=== PATIENT | male | born 1970 | race Caucasian/White ===

== ENCOUNTER → 2016-06-07 | Outpatient (CLI) | payer BC ==
[~2016-06-07] MED LIST: FLUCONAZOLE PO; OXYC-57 PO
== END | disposition home or self-care (01) ==
LOC: C.RDSM 09:00
PROVIDERS: ATTEND Physical Medicine & Rehabilitation Sports Medicine
DX: S46.012D Strain of muscle(s) and tendon(s) of the rotator cuff of left shoulder, subsequent encounter (principal); X58.XXXD Exposure to other specified factors, subsequent encounter

== ENCOUNTER → 2017-05-20 | Day surgery (SDC) | payer BC ==
[2017-05-08 08:07] VITALS: Ht 170.2 cm; Wt 81.8 kg
[~2017-05-20] VITALS: Ht 170.2 cm; Wt 81.8 kg
[~2017-05-20] MED LIST changes: +ATROPINE SULFATE 0.1 MG/ML 5ML SYR IV PRN; +BUPIVACAINE/EPINEPHRINE 0.5% MPF 1:200,000 30 ML VIAL ONE; +CEFAZOLIN 2000MG IV PUSH 10 ML IV SCH; +EpHEDrine SULFATE INJ 50 MG/ML AMP IV PRN; +EpHEDrine SULFATE INJ 50 MG/ML AMP ONE; +FENTANYL CITRATE INJ 50 MCG/1 ML 2 ML VIAL IV PRN; +FENTANYL CITRATE INJ 50 MCG/1 ML 2 ML VIAL ONE; +FLUC150T PO; -FLUCONAZOLE PO; +HYDR-5688 PO; +HYDROCODONE/ACETAMOPHEN 5/325MG TAB PO PRN; +LACTATED RINGER'S 1000ML 1,000 ML IV SCH; +LIDOCAINE HCL 2% 2 ML VIAL (20MG/ML) ONE; +MIDAZOLAM HCL 1 MG/ML 2ML VIAL ONE; +ONDANSETRON INJ 2 MG/ML 2 ML VIAL IV PRN; +ONDANSETRON INJ 2 MG/ML 2 ML VIAL ONE; -OXYC-57 PO; +PHENYLEPHRINE HCL INJ 10 MG/ML VIAL ONE; +PROPOFOL IV EMULSION 10 MG/ML 20 ML VIAL IV ONE; +SODIUM CHLORIDE 0.9% 1000ML 1,000 ML IV SCH
--- NOTE | 2017-05-20 08:14 | History & Physical Bridge Note ---
H&P Re-Evaluation Bridge Note: I have examined the patient, reviewed the History & Physical and in the interval since the performance of the History & Physical I have noted the following changes of clinical significance: No changes noted
--- NOTE | 2017-05-20 09:24 | [facility] Post Operative Brief Note ---
Immediate Operative Summary Operative Date May 20, 2017. Pre-Operative Diagnosis Left Inguinal hernia Post-Operative Diagnosis Same as pre-op; direct/recurrent Procedure(s) Performed Left Inguinal Hernia Open Repair With Mesh (plug/patch) Surgeon Deputy Attorney General Surgeon(s) Millie CARRANZA Estimated Blood Loss 5 cc Findings large /recurrent LIH. direct. Specimens none Anesthesia LMA Complication(s) None Disposition Recovery Room / PACU
--- NOTE | 2017-05-20 09:32 | [facility] Operative Report ---
Operative Report Operative Date May 20, 2017. Pre-Operative Diagnosis Left Inguinal hernia Post-Operative Diagnosis Same as pre-op; direct/recurrent Procedure(s) Performed Left Inguinal Hernia Open Repair With Mesh (plug/patch) Surgeon Fuel Efficient Aircraft Designer Surgeon(s) Millie CARRANZA Estimated Blood Loss 5 cc Findings large recurrent LIH Specimens none Anesthesia LMA Disposition Recovery Room / PACU Description of Procedure After informed consent was obtained the patient was taken to the operating room and placed in supine position. After successful placement of the laryngeal mask airway the left groin was shaved and sterilely prepped and draped in usual fashion. I made an incision through his old scar line with a 15 blade scalpel and carried this down through the soft tissue using electrocautery. The external oblique aponeurosis was skeletonized and opened with a fresh scalpel. Was extended distally through the external ring using Metzenbaum scissors as well as for several centimeters proximally. We then dissected free the cord and cord structures. I was able to use a Mendon lamp and gentle finger dissection to gently lift the cord structures off the pubic bone in place a Hammon drain around them. This exposed a large direct hernia. I did examine the cord and cord structures and there was no evidence of an indirect hernia. The direct hernia was reducible however it did not want to stay reduced therefore I opted to use a plug and patch technique. A piece of polypropylene plug mesh was inserted into the defect and secured to surrounding musculature using 0 Ethibond. I secured it to the shelving portion of Poupart's ligament laterally and the midline musculature medially to Marko's ligament distally. Once the plug was in place I then placed a mesh polypropylene onlay also. It was also secured distally to Marko's laterally along the shelving portion of Poupart's ligament and medially along the midline musculature. The "arms" of the mesh were wrapped around behind the cord and cord structures. All this was secured with interrupted 0 nylon sutures. The mesh did not impinge on the cord structures and laid tension free. There was adequate hemostasis. Marcaine was injected around the mesh for postoperative analgesia. Thorough irrigation was performed. We then closed the external oblique aponeurosis with 2-0 Vicryl in a running fashion. Soft tissue was irrigated and closed using 3-0 Vicryl and 4- 0 Monocryl for the skin. Additional Marcaine was injected around the skin and Dermabond glue used as a dressing. The patient was awakened extubated and transferred recovery in stable condition My physician's magistrate assistant was present throughout the entire case. She helped prepped the patient as well as helped with retraction throughout my entire dissection. She also helped with wound closure and dressing placement at the end of the case I attest to the content of the Intraoperative Record and any orders documented therein. Any exceptions are noted below.
--- NOTE | 2017-05-20 09:45 | Discharge Instructions-SurgCtr ---
Discharge Instructions Date of Service May 20, 2017. Visit Reason for Visit: Recurrent Left Inguinal Hernia Discharge Discharge Diagnosis / Problem: Recurrent Left Inguinal Hernia Discharge Goals Goal(s): Decrease discomfort, Improve function Activity Recommendations Activity Limitations: as noted below Lifting Limitations: no more than 10 pounds Exercise/Sports Limitations: until after follow-up appointment May Resume Sexual Activity: after follow-up appointment Shower/Bathe: tomorrow Driving or Machine Use: resume 3 days after discharge Anesthesia . Post Anesthesia Instructions: If you have had General Anesthesia or IV Sedation: * Do not drive today. * Resume driving when surgeon permits. * Do not make important decisions or sign legal documents today. * Call surgeon for: 1. Temperature elevations greater than 101 degrees F. 2. Uncontrollable pain. 3. Excessive bleeding. 4. Persistent nausea and vomiting. 5. Medication intolerance (nausea, vomiting or rash). * For nausea and vomiting use only clear liquids such as: tea, soda, bouillon until nausea subsides, then gradually increase diet as tolerated. * If you have any concerns or questions, call your surgeon's office. If physician is unavailable and it is an emergency, call 911 or go to the nearest emergency room. . Instructions / Follow-Up Instructions / Follow-Up Please follow-up with Dr. Patel in the General Surgery [facility] in 1-2 weeks. Please call the office at [phone] to make an appointment if you do not have one already. Please call the office with any questions or concerns. Diet Recommendations Home Diet: no limitations Procedures Procedures Performed: Left Inguinal Hernia Open Repair With Mesh (plug/patch) Pending Studies Studies pending at discharge: no Medical Emergencies . Who to Call and When: Medical Emergencies: If at any time you feel your situation is an emergency, please call 911 immediately. . Non-Emergent Contact Non-Emergency issues call your: Primary Care Provider, Surgeon Call Non-Emergent contact if: temperature is above 101.5, your pain is not controlled, wound has increased drainage, wound has increased redness . . "Provider Documentation" section prepared by Citlali Rodrigeuz. . [place] Drug Monitoring Program Search Results: patient reviewed within database, no issues identified
--- NOTE | 2017-05-20 10:03 | Anesthesia Progress Nt - [facility] ---
Anesthesia Post Op Note Date & Time May 20, 2017 at 10:03 Vital Signs Pain Intensity: 0 Vital Signs Past 12 Hours Date Time Temp Pulse Resp B/P (MAP) Pulse Ox O2 Delivery O2 Flow Rate FiO2 05/20/17 09:57 68 16 05/20/17 09:57 67 16 99 05/20/17 09:57 67 16 99 05/20/17 09:57 68 16 05/20/17 09:56 118/80 05/20/17 09:54 79 22 99 05/20/17 09:54 77 22 05/20/17 09:53 80 18 05/20/17 09:53 79 18 100 05/20/17 09:52 66 18 99 05/20/17 09:52 66 18 05/20/17 09:51 117/67 05/20/17 09:50 67 20 99 05/20/17 09:50 67 20 05/20/17 09:49 67 15 05/20/17 09:49 66 15 99 05/20/17 09:46 111/64 05/20/17 09:44 66 23 98 05/20/17 09:44 66 23 05/20/17 09:41 98/67 05/20/17 09:40 117/59 05/20/17 09:39 68 22 92 05/20/17 09:39 36.4 61 20 117/56 98 Mask 10 05/20/17 09:39 66 22 05/20/17 07:21 36.7 69 16 117/79 (92) 95 Room Air Notes Mental Status: alert / awake / arousable, participated in evaluation Pt Amnestic to Procedure: Yes Nausea / Vomiting: adequately controlled Pain: adequately controlled Airway Patency, RR, SpO2: stable & adequate BP & HR: stable & adequate Hydration State: stable & adequate Anesthetic Complications: no major complications apparent
[2017-05-20 10:49] VITALS: TEMP 36.6
[2017-05-20] MEDS: HYDROCODONE/ACETAMOPHEN 5/325MG TAB PO PRN ×2 (10:53→11:45)
[2017-05-20 12:03] VITALS: BP 122/80; PULSE 68; O2SAT 97
== END | disposition home or self-care (01) ==
LOC: X.SURG 07:11
PROVIDERS: ATTEND Surgery
DX: K40.91 Unilateral inguinal hernia, without obstruction or gangrene, recurrent (principal); Z98.890 Other specified postprocedural states; Z82.49 Family history of ischemic heart disease and other diseases of the circulatory system; Z83.3 Family history of diabetes mellitus

== ENCOUNTER 2020-08-16 06:53 | Observation (INO) ==
--- NOTE | 2020-07-19 14:13 | PAT Medication Instructions ---
Medication Instructions Date of Service July 19, 2020 Home Medications fluconazole 150 mg PO WK fluticasone propionate [Flonase] 1 spray INTRANASAL HS ibuprofen 800 mg PO Q6H PRN Continue as directed fluconazole 150 mg PO WK (just do not take on day of surgery) ASK your surgeon for instructions ibuprofen 800 mg PO Q6H PRN Take evening before surgery fluticasone propionate [Flonase] 1 spray INTRANASAL HS Other Notes NOTHING TO EAT OR DRINK AFTER MIDNIGHT THE NIGHT BEFORE YOUR SURGERY. If you have any questions please call us at [phone] or [phone] or [phone] or [phone]
--- NOTE | 2020-07-24 11:50 | Anesthesiology Consultation ---
Date of Service July 24, 2020 Assessment & Plan (1) Encounter for pre-operative examination: - COVID screening: Per assessment on 07/24: Travel screen- Lives/works in [place]). Uses PPE. No known COVID-19 positive contacts or current COVID- 19 related symptoms. Surgeon arranging preop COVID testing (scheduled 08/09; [place]). Awaiting results. - S/P Left Laparoscopic Recurrent Inguinal Hernia Repair with Mesh (04/09/18): Grade view 1, MAC #3, ETT 8.0 at [facility] Chart Review Chart Review: Acceptable Risk for Surgery (pending surgeon-ordered PCP clearance) and Patient seen in Pre Admission Testing Teaching & Discussion Pre-Anesthesia Teaching/Discussion Notes: Instructed NPO after midnight before surgery,except medications with 15 cc of water. Medication instructions provided according to the PAT guidelines. History Surgery Operation Date: 08/16/20 09:05 Proposed Procedures p Right Total Hip Arthroplasty with Dual Mobility Cup - Junior Montelongo MD Height/Weight Height: 5 ft 7 in Weight: 85.9 kg Allergies Allergy/AdvReac Type Severity Reaction Status Date / Time No Known Allergies Allergy Verified 07/10/20 10:17 Medications Home Medications Medication Instructions Recorded Confirmed Last Taken fluconazole 150 mg PO WK 02/26/18 07/10/20 04/05/18 08:30 fluticasone propionate [Flonase] 1 spray INTRANASAL HS 07/10/20 07/10/20 Unknown ibuprofen 800 mg PO Q6H PRN 07/10/20 07/10/20 Unknown Past Medical History Medical History Nail fungus Weekly fluconazole (chronic x years/no current issue) Sleep apnea CPAP Exercise / Class Metabolic Activity II 4-5 Yardwork/Stairs/Walk up hill Past Family History Family History Mother Family history of diabetes mellitus Past Surgical History Surgical History History of colonoscopy Hx of hernia repair R/L; Left Laparoscopic Recurrent Inguinal Hernia Repair with Mesh (04/09/18): Grade view 1, MAC #3, ETT 8.0 at [facility] Hx of repair of rotator cuff Right Hx of rotator cuff surgery Left Hx of skin graft Left ear Hx of wisdom tooth extraction Past Anesthesia History No Hx of Anesthesia Complications and No Family Hx of Anesthesia Complications History of PONV No Hx of PONV and No Hx of Motion Sickness Social History Smoking Status: Never smoker Do You Dip or Chew Tobacco: No Hx Alcohol Use: Yes Alcohol type: hard liquor alcohol intake frequency: a few times a week Hx Substance Use: No Review of Systems Patient denies chest pain, shortness of breath, dyspnea on exertion, joint pain, reflux, cough, wheezing, palpitations. Physical Exam Vital Signs VITALS BP 140/96 (had coffee prior to visit, patient states BP closely monitored and typically "very good") P 58 TEMP 98.2 SP02 97%RA RESP 16 PHYSICAL Full neck and c-spine range of motion. Full TMJ range of motion. TMD 3 finger breaths Mallampati Score 2 Dentition: intact Lungs: clear throughout to auscultation Cardiac: regular rate and rhythm, no murmurs noted Spine: normal Carotid arteries: negative bruit Extremities: no edema Testing Laboratory Results 07/24/20 11:18 07/24/20 11:18 PT 11.6 Seconds (9.0-12.0) 07/24/20 11:18 INR 1.2 (0.9-1.1) H 07/24/20 11:18 APTT 29.2 Seconds (21.0-31.0) 07/24/20 11:18 Blood Type O Positive 07/24/20 11:18 Antibody Screen NEGATIVE 07/24/20 11:18 Electrocardiogram Date: 07/24/20 NSR at 60bpm. LAFB. unconfirmed report. Chest X-Ray Date: 07/24/20 FINDINGS: PA and lateral chest radiographs are compared to study dated 04/12/2016. The cardiomediastinal silhouette is unremarkable. The lungs and pleural spaces are clear. There is no pneumothorax. The bony thorax appears intact. IMPRESSION: No active disease in the chest. Stress Test Date: 07/11/20 Type: exercise 16.5 METS. 106% MPHR. Negative ETT for myocardia ischemia based on EKG criteria. No chest pain with exercise. No significant exercise-induced arrhythmias. Well above average exercise capacity.
--- NOTE | 2020-07-24 13:01 | XRay Report ---
TWO VIEW CHEST CLINICAL HISTORY: Preoperative examination. FINDINGS: PA and lateral chest radiographs are compared to study dated 04/12/2016. The cardiomediastin al silhouette is unremarkable. The lungs and pleural spaces are clear. There is no pneumothorax. The bony thorax appears intact. IMPRESSION: No active disease in the chest. ACT 112: Negative or not required by law. Electronically signed by: Stanley Martinez M.D. 07/24/2020 12:59 PM
[2020-07-24 13:32] LABS: Hematocrit (blood only) 41.8 % (42-52); Hemoglobin 14.6 g/dL (14.0-18.0); Mean Corpuscular Volume 88.6 fL (80-100); Red Blood Count 4.72 M/uL (4.7-6.1); White Blood Count 5.37 K/uL (4.8-10.8)
[2020-07-24 13:33] LABS: Basophils # (auto) 0.01 K/uL (0-0.2); Basophils % (auto) 0.2 %; Eosinophils # (auto) 0.08 K/uL (0-0.5); Eosinophils % (auto) 1.5 %; Lymphocytes # (auto) 1.45 K/uL (1.2-3.4); Mean Corpuscular Hemoglobin 30.9 pg (25-34); Mean Corpuscular Hgb Conc 34.9 g/dL (32-36); Mean Platelet Volume 9.9 fL (7.4-10.4); Monocytes # (auto) 0.54 K/uL (0.11-0.59); Monocytes % (auto) 10.1 %; Neutrophils # (auto) 3.29 K/uL (1.4-6.5); Neutrophils % (auto) 61.2 %; Platelet Count 225 K/uL (130-400); RDW Coefficient of Variation 13.3 % (11.5-14.5); RDW Standard Deviation 43.4 fL (36.4-46.3)
[2020-07-24 13:45] LABS: INR 1.2 (0.9-1.1); Partial Thromboplastin Ratio 1.1; Partial Thromboplastin Time 29.2 Seconds (21.0-31.0); Prothrombin Time 11.6 Seconds (9.0-12.0)
[2020-07-24 14:12] LABS: BUN Creatinine Ratio 15.7 (10-20); Calcium 8.8 mg/dl (8.5-10.1); Creatinine Clr Calc Pharmacy 88.8 ml/min; Est GFR (Non-African American) 83.7; Potassium 4.3 mmol/L (3.5-5.1)
[2020-07-24 16:32] LABS: Appearance Urine Clear (Clear); Bilirubin Urine Negative (Negative); Blood Urine Negative (Negative); Color Urine Yellow; Glucose Urine UA Negative (Negative); Ketones Urine Negative (Negative); Leukocyte Esterase Urine Negative (Negative); Nitrite Urine Negative (Negative); Protein Urine Negative (Negative); Specific Gravity Urine 1.012 (1.000-1.030); Urobilinogen Urine Negative (Negative)
--- NOTE | 2020-07-24 21:45 | Electrocardiogram Report ---
Test Reason : Blood Pressure : / mmHG Vent. Rate : 060 BPM Atrial Rate : 060 BPM P-R Int : 152 ms QRS Dur : 110 ms QT Int : 436 ms P-R-T Axes : 058 -57 012 degrees QTc Int : 436 ms Normal sinus rhythm Left anterior fascicular block Abnormal ECG No previous ECGs available Confirmed by Ari Herrera ([id number]) on 07/24/2020 9:44:50 PM Referred By: Junior Montelongo Confirmed By:Ari Herrera
--- NOTE | 2020-07-26 16:27 | History & Physical Report ---
Date of Service July 26, 2020 Assessment & Plan (1) Degenerative joint disease of right hip: Postoperative prescriptions for Percocet and Coumadin will be provided at discharge from the hospital. Anticipate discharge to home with home health services. He has access to a walker already. The patient is currently asymptomatic of any COVID-19 symptoms. He is aware of the COVID-19 risks associated with surgery. He will obtain COVID-19 nasal swab testing prior to surgery. He has an appointment to see Dr. Malagon for medical clearance next week. The patient will see PAT today for preoperative lab work, EKG, and chest x-ray. PDMP was checked and there are no concerning findings. History of Present Illness Chief Complaint: Right hip pain Primary Care Provider: Sheeba Marmolejo MD This 49-year-old male presents today for right hip pain for the last 2 years. He is scheduled to undergo a right total hip arthroplasty using dual mobility cu p on 08/16/2020. It has become worse with time. He has periodic episodes of sharp pain. Worse with activity. He notes some limitation in end range of motion. No numbness or tingling. No specific trauma. Pain is worse with weightbearing and is affecting his ADLs. Preoperative imaging has been obtained. Allergies Allergy/AdvReac Type Severity Reaction Status Date / Time No Known Allergies Allergy Verified 07/10/20 10:17 Home Medications Medication Instructions Recorded Confirmed Type fluconazole 150 mg PO WK 02/26/18 07/10/20 History fluticasone propionate [Flonase] 1 spray INTRANASAL HS 07/10/20 07/10/20 History ibuprofen 800 mg PO Q6H PRN 07/10/20 07/10/20 History Past Med/Surg History Medical History (Updated 07/26/20 @ 16:25 by Asif Marie PA-C) History of diverticulitis Nail fungus Weekly fluconazole (chronic x years/no current issue) Sleep apnea CPAP Surgical History History of colonoscopy Hx of hernia repair R/L; Left Laparoscopic Recurrent Inguinal Hernia Repair with Mesh (04/09/18): Grade view 1, MAC #3, ETT 8.0 at [facility] Hx of repair of rotator cuff Right Hx of rotator cuff surgery Left Hx of skin graft Left ear Hx of wisdom tooth extraction Family History (Updated 07/26/20 @ 16:24 by Asif Marie PA-C) Mother Family history of diabetes mellitus Other Atrial fibrillation Diabetes Heart disease Obesity Prostate cancer Social History (Updated 07/26/20 @ 16:21 by Asif Marie PA-C) Smoking Status: Never smoker Second Hand Exposure: No; Do You Dip or Chew Tobacco: No; Hx Alcohol Use: Yes Alcohol type: hard liquor Hx Substance Use: No Preferred Language: Guamanian Communication Ability: Effective Component Lab Tech Required: No Beliefs That Will Affect Care: None marital status: Current Living Situation: Spouse current occupational status: employed Other Information That Helps Us Care for You: No Feels Safe at Home: Yes Safety Concerns: Feels Safe At This Time Assistive Devices: Contacts and Glasses Assistive Devices Comment: WILL WEAR GLASSES DOS Review of Systems Review of Systems: All systems reviewed & are unremarkable except as noted in HPI & below A total of 10 systems were reviewed. Physical Exam Physical Exam: Vitals: Height 169.4 cm, weight 86 kilograms, BMI 30. Temp 36.7 BP 142/76, Pulse 72 O2 sat 98% on room air. General: Well-developed, well-nourished middle-aged white male in no acute distress. Sitting in a chair. Alert and oriented. Skin: Warm and dry with good turgor. No rashes or lesions. No ecchymosis or erythema. HEENT: Normocephalic, atraumatic. Eyes: PERRLA, EOMI. Nares and oropharynx exams deferred due to COVID precautions. Heart: RRR, no MGR. Lungs: Clear to auscultation bilaterally, no crackles, rhonchi or wheezing, good air movement. Abdomen: Bowel sounds present x4, soft, nontender. No organomegaly. No masses. Musculoskeletal: Right hip evaluation reveals no obvious asymmetry or deformity. He has hip flexion to around 90 degrees before onset of discomfort. Internal rotation is just to neutral. He lacks about 10-15 degrees of external rotation when comparing right to left. Ambulates with a slight limp. No discomfort with palpation over his greater trochanter or IT band. He does have discomfort with palpation over the anterior flexion crease of the groin. Strength is 5/5 for resisted hip flexion, abduction, and adduction. Neurologic: Gross sensation is intact across the lower extremities by soft touch. Peripheral pulses are 2+. Results & Data Results & Data ([facility]) Diagnostic Findings Radiographic imaging previously obtained shows end-stage DJD of the right hip. Periarticular osteophytes and joint space narrowing are present. Large Cam lesions and pincer lesions are also present.
[~2020-08-16 06:53] MED LIST changes: -ATROPINE SULFATE 0.1 MG/ML 5ML SYR IV PRN; +BUPIVACAINE 0.5 % 5 MG/1 ML PF 10ML VIAL ONE; -BUPIVACAINE/EPINEPHRINE 0.5% MPF 1:200,000 30 ML VIAL ONE; -CEFAZOLIN 2000MG IV PUSH 10 ML IV SCH; -EpHEDrine SULFATE INJ 50 MG/ML AMP IV PRN; -EpHEDrine SULFATE INJ 50 MG/ML AMP ONE; -FENTANYL CITRATE INJ 50 MCG/1 ML 2 ML VIAL IV PRN; -FENTANYL CITRATE INJ 50 MCG/1 ML 2 ML VIAL ONE; -FLUC150T PO; -HYDR-5688 PO; -HYDROCODONE/ACETAMOPHEN 5/325MG TAB PO PRN; -LACTATED RINGER'S 1000ML 1,000 ML IV SCH; -LIDOCAINE HCL 2% 2 ML VIAL (20MG/ML) ONE; +LR 500ML BOLUS, THEN 15ML/HR IV SCH; +LR 60ML/HR IV SCH; -MIDAZOLAM HCL 1 MG/ML 2ML VIAL ONE; -ONDANSETRON INJ 2 MG/ML 2 ML VIAL IV PRN; -ONDANSETRON INJ 2 MG/ML 2 ML VIAL ONE; -PHENYLEPHRINE HCL INJ 10 MG/ML VIAL ONE; -PROPOFOL IV EMULSION 10 MG/ML 20 ML VIAL IV ONE; +ROPIVACAINE 0.5% HCL/PF 150 MG, BUPIVACAINE 0.75% MPF 20 ML, EPINEPHrine 0.15 MG, Ketor... INFIL SCH; -SODIUM CHLORIDE 0.9% 1000ML 1,000 ML IV SCH; +TRANEXAMIC ACID 1,000 MG **IV Pre-op IV SCH; +ceFAZolin 2000MG 2,000 MG/15 ML SYR IV SCH
[2020-08-16] MEDS ORDERED: MIDAZOLAM HCL 1 MG/ML 2ML VIAL ONE (07:52)
[2020-08-16] MEDS ORDERED: fentaNYL citrate 100 MCG/2 ML VIAL ONE (07:53)
[2020-08-16] MEDS ORDERED: ATROPINE SULFATE 0.1 MG/ML 10ML SYR IV PRN (08:10)
[2020-08-16] MEDS ORDERED: ONDANSETRON INJ 2 MG/ML 2 ML VIAL IV PRN ×2 (08:10→12:18)
[2020-08-16] MEDS ORDERED: ePHEDrine sulfate 50 MG/ML AMP IV PRN (08:10)
[2020-08-16] MEDS ORDERED: HYDROmorphone INJ 2 MG/ML SYR/VIAL IV PRN (08:10)
[2020-08-16] MEDS ORDERED: PROMETHAZINE HCL 12.5 MG in SODIUM CHLORIDE 0.9% 50 ML IV PRN (08:10)
[2020-08-16] MEDS ORDERED: fentaNYL citrate 100 MCG/2 ML VIAL IV PRN (08:10)
--- NOTE | 2020-08-16 08:17 | History & Physical Bridge Note ---
Date of Service August 16, 2020 History & Physical Bridge Note I have examined the patient, reviewed the History & Physical and in the interval since the performance of the History & Physical I have noted the following changes of clinical significance:consent obtained/site verified/covid screen negative. no changes noted
[2020-08-16] MEDS ORDERED: ORTHO JOINT ANESTHETIC ONE (08:32)
[2020-08-16] MEDS ORDERED: ONDANSETRON INJ 2 MG/ML 2 ML VIAL ONE (09:15)
[2020-08-16] MEDS ORDERED: PROPOFOL IV EMULSION 10 MG/ML 20 ML VIAL IV ONE (09:17)
[2020-08-16] MEDS ORDERED: ePHEDrine sulfate 50 MG/ML SYR ONE (09:50)
[2020-08-16] MEDS ORDERED: PHENYLEPHRINE 100MCG/ML 5ML SYR ONE (09:50)
--- NOTE | 2020-08-16 10:19 | Post Operative Brief Note ---
Immediate Post Op Note v1 Date of Surgery August 16, 2020 Pre & Post Diagnosis Operation Date: 08/16/20 08:50 Pre-Op Diagnosis: Right Hip Degenerative Joint Disease Post-Op Diagnosis: Right Hip Degenerative Joint Disease I identified the patient and participated in the time-out.: Yes Procedure Operation Date: 08/16/20 08:50 Actual Procedures p Right Total Hip Arthroplasty with Dual Mobility Cup--Uncemented(Right) - Junior Montelongo MD Surgeon Junior Montelongo MD Medical Technologist Prn Phyllis/Frank Estimated Blood Loss 150 Findings Consistent with Post-Op Diagnosis
--- NOTE | 2020-08-16 10:32 | Operative Report ---
Post Operative Report Pre & Post Diagnosis Operation Date: 08/16/20 08:50 Pre-Op Diagnosis: Right Hip Degenerative Joint Disease Post-Op Diagnosis: Right Hip Degenerative Joint Disease I identified the patient and participated in the time-out.: Yes Procedure Operation Date: 08/16/20 08:50 Actual Procedures p Right Total Hip Arthroplasty with Dual Mobility Cup--Uncemented(Right) - Junior Montelongo MD Surgeon JOSE Montelongo MD Body Die Maker Phyllis/Frank CARRANZA Estimated Blood Loss 150 Findings Consistent with Post-Op Diagnosis Specimens see operative report Drains none Complications none Disposition Accompanied Patient To Recovery: Yes Disposition: Recovery Room Indications This 50-year-old male presented to the office with complaints of persisting right hip pain. He had tried conservative care measures without improvement. He elected to proceed with surgical intervention after being educated about potential risks and outcomes. Preoperative imaging was obtained. Description of Procedure Patient was administered a spinal anesthetic and then taken to the operating room where he was given sedation. He was prepped and draped in the usual sterile fashion. Please see Dr. Montelongo's operative report for specifics of the procedure. I was present for the entire case from initial patient positioning through final wound closure. Assistance was provided in tissue retraction, hemostasis, trial implant placement, final implant placement, and final wound closure. Patient was taken to the recovery room in satisfactory condition. I attest to the content of the Intraoperative Record and any orders documented therein. Any exceptions are noted below.
--- NOTE | 2020-08-16 10:58 | Anesthesiology Progress Note ---
Date of Service August 16, 2020 Anesthesia Post Procedure Vital Signs Vital Signs: Temp Pulse Pulse Resp BP BP Pulse Ox 08/16/20 10:50 61 16 113/73 98 08/16/20 10:40 61 18 117/76 100 08/16/20 10:32 36.8 C 70 12 114/56 L 96 08/16/20 07:10 36.8 C 66 20 151/83 H 97 Transfer of Care Handoff Completed per policy Notes Mental Status: alert / awake / arousable and participated in evaluation Patient Amnestic to Procedure: Yes Nausea / Vomiting: adequately controlled Pain: adequately controlled Airway Patency, RR, SpO2: stable & adequate BP & HR: stable & adequate Hydration State: stable & adequate Anesthetic Complications: no major complications apparent and Pt Satisfied with anesthetic care
--- NOTE | 2020-08-16 11:00 | XRay Report ---
XR pelvis 1-2V routine HISTORY: 50 years-old Male S/P R ELIESER right hip total joint arthroplasty COMPARISON: Pelvis and right hip radiographs 05/15/2020 TECHNIQUE: AP view of the pelvis FINDINGS: Right hip total joint arthroplasty. Satisfactory alignment without acute fracture or retained foreign body. Overlying skin ankit are noted along with expected postsurgical soft tissue swelling and maggie p tissue air. Prior ventral abdominal wall herniorrhaphy. Surgical clips project over the scrotum. Mi ld to moderate left hip osteoarthritis. IMPRESSION: Right hip total joint arthroplasty with expected postoperative changes. ACT 112: Negative or not required by law. The above report was generated using voice recognition software. It may contain grammatical, syntax o r spelling errors. Electronically signed by: Alan Whaley M.D. 08/16/2020 10:59 AM
--- NOTE | 2020-08-16 11:41 | Operative Report (OR) ---
DATE OF OPERATION: 08/16/2020 SURGEON: Junior Montelongo MD. DISPLAY ARTIST: Phyllis. SECOND DISPLAY ARTIST: Asif Marie PA-C. PREOPERATIVE DIAGNOSIS: Osteoarthritis with dysplasia, right hip. POSTOPERATIVE DIAGNOSIS: Osteoarthritis with dysplasia, right hip. OPERATION PERFORMED: Noncemented right total hip replacement. SUMMARY OF IMPLANTS: A 52 acetabular shell cup, 25 x 6.5 screw, 52 dual mobility shell, 22.225/45 Bi-Mentum liner, 0 standard Tri-Lock, 22.225 +4 head that was metal, Articul/ewa femoral head. ESTIMATED BLOOD LOSS: 150 mL. CRYSTALLOID: Per anesthesia. PERIOPERATIVE SITUATION: Medically cleared male with intractable right hip pain with x-rays revealing substantial dysplasia, Cam lesions and end-stage arthritis. He is also developing a similar process on the left. He understands the risks and consequences. Wants to proceed with surgical treatment. DESCRIPTION OF PROCEDURE: The patient was appropriately identified, site verified, consent verified. Antibiotics confirmed as being given. The right lower extremity was prepped and draped in usual routine fashion with the patient in the left lateral decubitus position. A posterior approach to the hip was then made. Sharp dissection carried to skin and blunt dissection down to fascia. This was then incised in line with the incision. Retractors were placed. Care taken to protect the sciatic nerve. The short external rotators were released. The capsule was then T'ed. The hip was then dislocated. The femoral neck resected. Remaining labrum was excised. Serial reaming carried up to 52 and a 52 cup impacted into appropriate anteversion and inclination. A 6.5 x 25 screw was placed with excellent purchase. Trial liner was seated. The femur was then flexed and internally rotated into the wound. The box builder placed, a canal finder placed. It required a distal reamer due to the fact it was so tight and then once that was done, we were able to get the chili pepper rasp and the [address], and trial reduction was carried out and everything was excellent. All implants were removed trial-patricio, everything irrigated. The metal liner seated appropriately, impacted appropriately, verified that it was seating well in all planes. The femoral stem was then seated and then the appropriate head and neck unit applied with the dual mobility components. It was then reduced. The hip was stable in all planes. It was very difficult to dislocate. The wound was then irrigated with Betadine and Pulsavac and then closed with #2 Vicryl to close the capsule, the short external rotators, the gluteus nesha, IT band fascia and some deep fat. Then 2-0 Vicryl for the subcutaneous layer and stainless steel clips for skin. Appropriate dressing applied. The patient was transferred to recovery room in satisfactory condition having tolerated the procedure well. I attest to the content of the Intraoperative Record and any orders documented therein. Any exception s are noted below.
--- NOTE | 2020-08-16 11:44 | Progress Notes ---
DATE: 08/16/2020 SUBJECTIVE: Post op check status post right total hip replacement. The patient denies chest pain, shortness of breath, fever, chills, nausea, vomiting or headache. OBJECTIVE: Vital signs are stable. He is afebrile. Postop x-ray looks excellent. ASSESSMENT: Still has blocked by his spinal. ASSESSMENT: Doing well status post right total hip replacement. Continue with postop care pathway. Discharge to home tomorrow.
--- NOTE | 2020-08-16 11:48 | Discharge Summary (DS) ---
DATE OF DISCHARGE: 08/17/2020. CHIEF COMPLAINT: Right hip pain. HISTORY OF PRESENT ILLNESS: Underwent elective right total hip replacement. Hospital course has been uneventful to date. If he does well overnight, he will be discharged. PAST MEDICAL AND PAST SURGICAL HISTORY: Remarkable for diverticulitis, nail fungus, sleep apnea, colonoscopies, rotator cuff surgery, skin graft surgery, tooth extraction. FAMILY HISTORY: Noncontributory. Mother has diabetes. Other atrial fibrillation, diabetes, heart disease, obesity, prostate cancer. He has none of those. SOCIAL HISTORY: Reveals he is . Does not smoke or drink. REVIEW OF SYSTEMS: Noncontributory. Postop x-rays were excellent. ASSESSMENT: Doing well status post right total hip replacement. We will discharge tomorrow after PT/OT. DVT prophylaxis with Coumadin.
[2020-08-16] MEDS ORDERED: NALOXONE HCL 0.4 MG/1 ML VIAL/CARP IV PRN (12:18)
[2020-08-16] MEDS ORDERED: HYDROmorphone INJ 0.5 MG/0.5 ML SYR IV PRN (12:18)
[2020-08-16] MEDS ORDERED: oxyCODONE HCL IR 5 MG TAB (IMMEDIATE RELEASE) PO PRN (12:18)
[2020-08-16] MEDS ORDERED: MAGNESIUM HYDROXIDE SUSP 30 ML UDC PO PRN (12:18)
[2020-08-16] MEDS ORDERED: bisacodyL 10 MG SUPP PR PRN (12:18)
[2020-08-16] MEDS ORDERED: ALUMINUM/MAGNESIUM SUSP 30 ML UDC PO PRN (12:18)
[2020-08-16] MEDS ORDERED: TAMSULOSIN HCL 0.4 MG CAP PO PRN (12:18)
[2020-08-16] MEDS ORDERED: diphenhydrAMINE 50 MG/ML VIAL IV PRN (12:18)
[2020-08-16] MEDS ORDERED: SODIUM CHLORIDE 0.9% 1000ML 1,000 ML IV SCH (12:18)
[2020-08-16] MEDS ORDERED: METOCLOPRAMIDE HCL INJ 5 MG/ML 2 ML VIAL IV PRN (12:18)
[2020-08-16] MEDS: ACETAMINOPHEN 500 MG TAB PO SCH ×2 (13:38→21:08)
[2020-08-16] MEDS: KETOROLAC 30 MG/ML VIAL IV SCH ×2 (13:38→19:25)
[2020-08-16] MEDS ORDERED: ORTHO WARFARIN NOMOGRAM SCH (14:00)
[2020-08-16] MEDS ORDERED: WARFARIN SOD 5 MG TAB PO ONE (16:00)
[2020-08-16] MEDS ORDERED: TRANEXAMIC ACID / 0.7% NACL 1,000 MG/100 ML BAG IV SCH (16:37)
[2020-08-16] MEDS: FERROUS GLUCONATE 324 MG TAB PO SCH (17:46)
[2020-08-16] MEDS: ceFAZolin 2000MG 2,000 MG/15 ML SYR IV SCH (17:46)
[2020-08-16] MEDS: ASCORBIC ACID 500 MG TAB PO SCH (17:46)
[2020-08-16] MEDS ORDERED: SENNA 8.6 MG TAB PO SCH (21:00)
[2020-08-16] MEDS ORDERED: FLUTICASONE PROPIONATE NA SPR 16 GM BTL NAE SCH (21:00)
[2020-08-16] MEDS: DOCUSATE SODIUM 100 MG CAP PO SCH (21:08)
[2020-08-17] MEDS: ceFAZolin 2000MG 2,000 MG/15 ML SYR IV SCH (01:56)
[2020-08-17] MEDS: KETOROLAC 30 MG/ML VIAL IV SCH ×2 (01:56→09:04)
[2020-08-17] MEDS: ACETAMINOPHEN 500 MG TAB PO SCH (05:32)
[2020-08-17 06:17] LABS: Eosinophils # (auto) 0.01 K/uL (0-0.5); Eosinophils % (auto) 0.1 %; Hematocrit (blood only) 35.5 % (42-52); Hemoglobin 12.2 g/dL (14.0-18.0); Immature Granulocytes # (auto) 0.01 K/uL (0.00-0.02); Immature Granulocytes % (auto) 0.1 %; Lymphocytes # (auto) 0.91 K/uL (1.2-3.4); Lymphocytes % (auto) 10.5 %; Mean Corpuscular Hemoglobin 30.5 pg (25-34); Mean Corpuscular Hgb Conc 34.4 g/dL (32-36); Mean Corpuscular Volume 88.8 fL (80-100); Monocytes # (auto) 0.77 K/uL (0.11-0.59); Monocytes % (auto) 8.9 %; Neutrophils # (auto) 6.95 K/uL (1.4-6.5); Neutrophils % (auto) 80.4 %; Platelet Count 184 K/uL (130-400); RDW Coefficient of Variation 13.3 % (11.5-14.5); RDW Standard Deviation 43.3 fL (36.4-46.3); White Blood Count 8.65 K/uL (4.8-10.8)
[2020-08-17 06:28] LABS: INR 1.2 (0.9-1.1); Prothrombin Time 11.9 Seconds (9.0-12.0)
[2020-08-17 06:50] LABS: BUN Creatinine Ratio 17.3 (10-20); Calcium 8.7 mg/dl (8.5-10.1); Creatinine Clr Calc Pharmacy 89.3 ml/min; Est GFR (African American) 98.7; Est GFR (Non-African American) 85.1
--- NOTE | 2020-08-17 07:47 | Progress Notes ---
DATE: 08/17/2020 SUBJECTIVE: Postop check status post right total hip replacement. He is doing well. Denies any chest pain, shortness of breath, fever, chills, nausea, vomiting or headache. OBJECTIVE: Vital signs are stable. He is afebrile. Neurovascular check, femoral sciatic nerve is normal. INR is 1.2. Wound dressing clean, dry and intact. ASSESSMENT: Doing well. Discharge to home today after PT, OT. Dressing change. Keep INR 1.8-2.2 at the max. Follow up in 2 weeks for staple removal.
[2020-08-17] MEDS ORDERED: dexAMETHasone 10 MG in SYRINGE 0 ML IV SCH (08:00)
[2020-08-17] MEDS ORDERED: MULTIVITAMIN TAB PO SCH (09:00)
[2020-08-17] MEDS: FERROUS GLUCONATE 324 MG TAB PO SCH (09:04)
[2020-08-17] MEDS: DOCUSATE SODIUM 100 MG CAP PO SCH (09:04)
[2020-08-17] MEDS: ASCORBIC ACID 500 MG TAB PO SCH (09:05)
[2020-08-17] MEDS ORDERED: WARFARIN SOD 5 MG TAB PO STA (11:10)
[2020-08-17] MEDS ORDERED: WARFARIN SOD 5 MG TAB PO ONE (16:00)
--- NOTE | 2020-08-17 18:04 | Orthopedic Progress Note ---
Date of Service August 17, 2020 Assessment & Plan (1) S/P total hip arthroplasty: Patient was educated regarding today's findings. Conservative care measures were discussed. Postsurgical dressing was changed by me. New pressure dressing was applied. He will leave the dressing in place until Friday, and then change as needed for soiling. Prescriptions for Coumadin and Percocet were sent to his pharmacy. He will take Coumadin 4 mg daily through the weekend, and have his blood rechecked on Friday. Written discharge instructions were provided. Total hip precautions were reviewed. Weightbearing as tolerated using his walker. Follow-up in the office in 2 weeks as scheduled for staple removal. Admission and Anticipated Discharge Date Admission Date: August 16, 2020 Subjective Patient is seen in his room this morning. He states he is doing well. He has very little pain. He has already worked with occupational therapy this morning. He has had breakfast. He feels ready for discharge to home. He denies any chest pain, shortness of breath, current nausea, vomiting, abdominal pain, or difficulty urinating. He did have some nausea yesterday, but it resolved. No vomiting. He has been out of bed. No other complaints. Review of Systems Review of Systems: Unchanged from yesterday. Physical Exam Physical Exam: General: Well-developed, well-nourished, middle-aged white m lav[place], in no acute distress. Sitting in a chair. Alert and oriented. Rises easily from the chair. Skin: Warm and dry with good turgor. No rashes or lesions. Expected postoperative edema. No ecchymosis. Postsurgical dressings are in place on the right hip. Musculoskeletal: Right hip evaluation reveals an intact postsurgical dressing. Upon removal, he has scant dried blood on his inner dressings. There is nothing soaking through. He has no current active bleeding. Lefty are intact. Wound edges are well approximated. Supple motion of his right hip. He rises easily from the chair. Neurologic: Gross sensation is intact across the right leg by soft touch. Peripheral pulses are 2+. Results & Data ([facility]) Vital Signs (Past 12 Hours) Vital Signs Temp Pulse Pulse Resp BP Pulse Ox 08/17/20 10:26 36.7 C 73 61 16 112/71 98 08/17/20 07:36 36.7 C 73 16 112/71 98 Laboratory Results WBCs today are 8.65. Hemoglobin 12.2, hematocrit 35.5. Platelets 184,000. INR is 1.2. PRP is unremarkable.
--- NOTE | 2020-08-18 15:02 | Operative Report ---
Post Operative Report Pre & Post Diagnosis Operation Date: 08/16/20 08:50 Pre-Op Diagnosis: Right Hip Degenerative Joint Disease Post-Op Diagnosis: Right Hip Degenerative Joint Disease I identified the patient and participated in the time-out.: Yes Procedure Operation Date: 08/16/20 08:50 Actual Procedures p Right Total Hip Arthroplasty with Dual Mobility Cup--Uncemented(Right) - Junior Montelongo MD Surgeon Junior Montelongo MD Intermediate Frame Tender Phyllis/Frank CARRANZA Estimated Blood Loss 150 Findings Consistent with Post-Op Diagnosis Specimens femoral heaf Anesthesia Type Spinal MAC Complications none Disposition Accompanied Patient To Recovery: Yes Disposition: Recovery Room Description of Procedure As per Dr. Montelongo' s note, I assisted in prepping and draping, instruments handling, certain parts of the procedure and wound closure I attest to the content of the Intraoperative Record and any orders documented therein. Any exceptions are noted below.
== END 2020-08-17 13:24 | disposition home health service (06) ==
LOC: 3E 06:53 → ASU 06:53